=== PATIENT | male | born 1990 | race Caucasian/White ===

== ENCOUNTER 2024-11-14 13:12 | Emergency (ER) | payer OTHER ==
[~2024-11-14] VITALS: Ht 172.7 cm; Wt 99.8 kg
[~2024-11-14 13:12] MED LIST: Norco 5-325 Ta1 EACH PO
[2024-11-14 13:29] VITALS: BP 132/98
== END 2024-11-14 14:46 | disposition home or self-care (01) ==
LOC: ER 13:12
DX: S61.512A Laceration without foreign body of left wrist, initial encounter (principal); W45.8XXA Other foreign body or object entering through skin, initial encounter
CPT/HCPCS: 12002; 99282-25